=== PATIENT | female | born 1940 | race Caucasian/White ===

== ENCOUNTER 2022-05-28 09:20 | Emergency (ER) | payer MEDICARE, BC ==
[~2022-05-28] VITALS: Ht 165.1 cm; Wt 93.0 kg
[2022-05-28 10:39] VITALS: BP 154/119
[2022-05-28] MEDS ORDERED: SODIUM CHLORIDE 0.9% 1,000 ML IV ONE (11:15)
[2022-05-28 11:45] LABS: Urine Bacteria NONE SEEN /hpf (None Seen); Urine Blood Negative /uL (Negative); Urine Hyaline Cast FEW /lpf (0 - 2); Urine Mucus FEW (None Seen); Urine WBC 2 /hpf (0 - 5)
[2022-05-28 12:14] LABS: Basophils # (auto) 0 10 ^3/uL (0-0.2); Basophils % (auto) 0.4 % (0.0-2.0); Eosinophils # (auto) 0.1 10 ^3/uL (0-0.8); Eosinophils % (auto) 1.4 % (0.0-7.0); Hematocrit 39.2 % (36.0-46.0); Hemoglobin 12.4 g/dL (12.2-16.2); Lymphocytes # (auto) 1.3 10 ^3/uL (0.4-5.4); Lymphocytes % (auto) 14.8 % (10.0-50.0); Mean Corpuscular Hemoglobin 31.3 pg (28.0-32.0); Mean Corpuscular Hgb Conc. 31.5 g/dL (32.0-36.0); Mean Corpuscular Volume 99.4 fL (80.0-100.0); Monocytes # (auto) 0.8 10 ^3/uL (0-1.3); Monocytes % (auto) 8.9 % (0.0-12.0); Neutrophils # (auto) 6.4 10 ^3/uL (1.6-8.6); Neutrophils % (auto) 74.5 % (37.0-80.0); Nucleated Red Blood Cells % 0.2 %; Red Blood Cells 3.94 10^6/uL (4.0-5.20); Red Cell Distribution Width 15.2 % (11.8-14.3); White Blood Cell 8.6 10^3/uL (4.4-10.8)
[2022-05-28 12:16] LABS: Albumin 3.6 g/dL (3.4-5.0); BUN/Creatinine Ratio 13.3; Calcium 8.9 mg/dL (8.5-10.1); Potassium 3.7 mmol/L (3.5-5.1)
[2022-05-28 12:18] LABS: INR 0.96 (0.9-1.15); Partial Thromboplastin Time 27.1 sec (24.6-33.4)
[2022-05-28 12:26] LABS: Bilirubin, Total 0.3 mg/dL (0.2-1.0); Total Protein 7.4 g/dL (6.4-8.2)
[2022-05-28] MEDS ORDERED: NITR-87 PO (15:32)
[2022-05-28] MEDS ORDERED: IBU600T PO (15:33)
[2022-05-28] MEDS ORDERED: cloNIDine HCL 0.1 MG TAB PO ONE (15:45)
== END 2022-05-28 17:28 | disposition left against medical advice (07) ==
LOC: ER 09:20
DX: M25.551 Pain in right hip (principal); N39.0 Urinary tract infection, site not specified; I10 Essential (primary) hypertension; Z79.899 Other long term (current) drug therapy
CPT/HCPCS: 36415; 71045; 72192; 73502; 80053; 81001; 84484; 85025; 85610; 85730

== ENCOUNTER 2022-07-15 14:56 | Inpatient (IN) | payer MEDICARE, BC ==
[~2022-07-15] VITALS: Ht 165.1 cm; Wt 100.6 kg
[~2022-07-15 14:56] MED LIST: IBU600T PO; NITR-87 PO
[2022-07-15] MEDS ORDERED: SODIUM CHLORIDE 0.9% 1,000 ML IV ONE (16:30)
[2022-07-15] MEDS ORDERED: ONDANSETRON HCL 4 MG/2 ML VIAL IV ONE (16:30)
[2022-07-15] MEDS ORDERED: MORPHINE SULFATE 4 MG/ML SYR/VIAL IV ONE (16:30)
[2022-07-15 17:27] LABS: Basophils # (auto) 0 10 ^3/uL (0-0.2); Basophils % (auto) 0.7 % (0.0-2.0); Eosinophils # (auto) 0 10 ^3/uL (0-0.8); Eosinophils % (auto) 0.5 % (0.0-7.0); Hematocrit 35.1 % (36.0-46.0); Hemoglobin 11.6 g/dL (12.2-16.2); Lymphocytes # (auto) 0.5 10 ^3/uL (0.4-5.4); Lymphocytes % (auto) 7.5 % (10.0-50.0); Mean Corpuscular Hemoglobin 31.6 pg (28.0-32.0); Mean Corpuscular Hgb Conc. 33.1 g/dL (32.0-36.0); Mean Corpuscular Volume 95.4 fL (80.0-100.0); Monocytes # (auto) 0.5 10 ^3/uL (0-1.3); Monocytes % (auto) 7.4 % (0.0-12.0); Neutrophils # (auto) 5.3 10 ^3/uL (1.6-8.6); Neutrophils % (auto) 83.9 % (37.0-80.0); Nucleated Red Blood Cells % 0.1 %; Red Blood Cells 3.68 10^6/uL (4.0-5.20); White Blood Cell 6.3 10^3/uL (4.4-10.8)
[2022-07-15 17:30] LABS: INR 0.95 (0.9-1.15); Partial Thromboplastin Time 27.9 sec (24.6-33.4)
[2022-07-15 17:32] LABS: Albumin 3.4 g/dL (3.4-5.0); Calcium 9.1 mg/dL (8.5-10.1); Magnesium 2.5 mg/dL (1.6-2.6); Potassium 3.5 mmol/L (3.5-5.1)
[2022-07-15 17:36] LABS: BUN/Creatinine Ratio 19.6; Bilirubin, Total 0.2 mg/dL (0.2-1.0); Total Protein 7.5 g/dL (6.4-8.2)
[2022-07-15] MEDS ORDERED: DOCUSATE SOD 100 MG CAP PO PRN (18:45)
[2022-07-15] MEDS ORDERED: ONDANSETRON HCL 4 MG/2 ML VIAL IV PRN (18:45)
[2022-07-15] MEDS ORDERED: ENOXAPARIN SOD 40 MG/0.4 ML SYRINGE SC SCH (18:53)
[2022-07-15] MEDS: SODIUM CHLORIDE 0.9% 1,000 ML IV SCH (21:51)
[2022-07-15] MEDS: PANTOPRAZOLE 40 MG/10 ML VIAL INJ IV SCH (21:51)
[2022-07-15] MEDS: MORPHINE SULFATE INJ 2 MG/ml SYRG IV PRN (21:53)
[2022-07-15] MEDS: HEPARIN SODIUM (PORCINE) 5000 UNITS/ML 1ML VIAL SC SCH (22:12)
[2022-07-15 23:19] VITALS: BP 146/71
[2022-07-16] MEDS: MORPHINE SULFATE INJ 2 MG/ml SYRG IV PRN ×3 (02:09→10:41)
[2022-07-16 05:00] VITALS: BP 117/58
[2022-07-16 05:50] LABS: Basophils # (auto) 0 10 ^3/uL (0-0.2); Basophils % (auto) 0.5 % (0.0-2.0); Eosinophils # (auto) 0.1 10 ^3/uL (0-0.8); Eosinophils % (auto) 1.3 % (0.0-7.0); Hematocrit 31.7 % (36.0-46.0); Hemoglobin 10.6 g/dL (12.2-16.2); Lymphocytes # (auto) 0.9 10 ^3/uL (0.4-5.4); Lymphocytes % (auto) 16.6 % (10.0-50.0); Mean Corpuscular Hemoglobin 31.7 pg (28.0-32.0); Mean Corpuscular Hgb Conc. 33.5 g/dL (32.0-36.0); Mean Corpuscular Volume 94.5 fL (80.0-100.0); Monocytes # (auto) 0.5 10 ^3/uL (0-1.3); Monocytes % (auto) 10.3 % (0.0-12.0); Neutrophils # (auto) 3.8 10 ^3/uL (1.6-8.6); Neutrophils % (auto) 71.3 % (37.0-80.0); Red Blood Cells 3.36 10^6/uL (4.0-5.20); Red Cell Distribution Width 15.9 % (11.8-14.3); White Blood Cell 5.3 10^3/uL (4.4-10.8)
[2022-07-16 05:58] LABS: Albumin 2.8 g/dL (3.4-5.0); Calcium 8.7 mg/dL (8.5-10.1); Potassium 3.2 mmol/L (3.5-5.1)
[2022-07-16 06:00] LABS: BUN/Creatinine Ratio 20.8
[2022-07-16 06:02] LABS: Bilirubin, Total 0.2 mg/dL (0.2-1.0); Total Protein 6.6 g/dL (6.4-8.2)
[2022-07-16] MEDS ORDERED: POTASSIUM CHL 20 Meq TABLET PO ONE (08:45)
[2022-07-16] MEDS ORDERED: POTASSIUM CHL 20MEQ/100ML 100 ML IV ONE (08:45)
[2022-07-16 09:00] VITALS: BP 129/61
[2022-07-16] MEDS: HEPARIN SODIUM (PORCINE) 5000 UNITS/ML 1ML VIAL SC SCH ×2 (09:45→22:00)
[2022-07-16] MEDS: SODIUM CHLORIDE 0.9% 1,000 ML IV SCH ×2 (10:40→23:53)
[2022-07-16] MEDS: PANTOPRAZOLE 40 MG/10 ML VIAL INJ IV SCH (10:40)
[2022-07-16] MEDS ORDERED: ROCURONIUM 10MG/ML 10ML VIAL IV ONE (12:36)
[2022-07-16] MEDS ORDERED: ONDANSETRON HCL 4 MG/2 ML VIAL IV ONE (12:36)
[2022-07-16] MEDS ORDERED: SUCCINYLCHOLINE CHLORIDE 20 MG/ML 10ML VIAL IV ONE (12:36)
[2022-07-16 13:00] VITALS: BP 147/64
[2022-07-16] MEDS ORDERED: ceFAZolin 1GM/50ML 100 ML IV ONE ×2 (16:16→19:25)
[2022-07-16] MEDS ORDERED: BUPIVACAINE W/ EPINEPH 0.25% INJ 50ML MDV ONE (16:32)
[2022-07-16] MEDS ORDERED: TRANEXAMIC ACID 20 ML ONE (16:32)
[2022-07-16] MEDS ORDERED: LIDOCAINE HCL (LOCAL ANESTH.) 0.5 % 50ML MDV IJ ONE (16:59)
[2022-07-16] MEDS ORDERED: TETRACAINE 1% INJ 2 ML VIAL IJ ONE (17:02)
[2022-07-16] MEDS ORDERED: fentaNYL CITRATE 100 MCG/2 ML VL ONE (17:12)
[2022-07-16] MEDS ORDERED: MIDAZOLAM HCL 2MG/2ML 2ml VIAL (1mg/ml) ONE (17:13)
[2022-07-16] MEDS ORDERED: VANCOMYCIN HCL 1000 MG VL ONE (19:26)
[2022-07-16] MEDS ORDERED: NALOXONE HCL 0.4 MG/ML VIAL IV PRN (19:30)
[2022-07-16] MEDS ORDERED: NALBUPHINE HCL 10 MG/1ml INJECTION SUBCUT ONE (19:30)
[2022-07-16] MEDS ORDERED: DexAMETHasone SOD PHOS 10MG/1ML VIAL INJ IV PRN (19:30)
[2022-07-16] MEDS ORDERED: HYDROmorphone HCL 2 MG/ML VL/or syr IV PRN ×3 (19:30)
[2022-07-16] MEDS ORDERED: ONDANSETRON HCL 4 MG/2 ML VIAL IV PRN (19:30)
[2022-07-16] MEDS ORDERED: PROPOFOL 10 MG/ML 20 ML IV ONE (21:30)
[2022-07-16 22:20] VITALS: BP 141/68
[2022-07-16 23:40] VITALS: BP 148/75
[2022-07-17] VITALS (18 sets, daily range): BP systolic 95–136; BP diastolic 52–96
[2022-07-17] MEDS ORDERED: ceFAZolin 1GM/50ML 100 ML IV ONE (01:06)
[2022-07-17] MEDS: ceFAZolin 2 GM in D5W 5% 100 ML IV SCH ×2 (01:18→10:10)
[2022-07-17] MEDS: PANTOPRAZOLE 40 MG/10 ML VIAL INJ IV SCH (08:35)
[2022-07-17] MEDS: MORPHINE SULFATE INJ 2 MG/ml SYRG IV PRN ×4 (08:37→19:44)
[2022-07-17] MEDS ORDERED: HEPARIN SODIUM (PORCINE) 5000 UNITS/ML 1ML VIAL ONE (08:45)
[2022-07-17] MEDS: HEPARIN SODIUM (PORCINE) 5000 UNITS/ML 1ML VIAL SC SCH ×2 (10:13→20:32)
[2022-07-17] MEDS ORDERED: DOCUSATE SOD 100 MG CAP PO ONE (10:30)
[2022-07-17] MEDS ORDERED: ACETAMINOPHEN 325 MG TAB PO PRN (10:30)
[2022-07-17 11:14] LABS: Basophils # (auto) 0 10 ^3/uL (0-0.2); Basophils % (auto) 0.2 % (0.0-2.0); Eosinophils # (auto) 0 10 ^3/uL (0-0.8); Eosinophils % (auto) 0.3 % (0.0-7.0); Hematocrit 29.6 % (36.0-46.0); Hemoglobin 9.8 g/dL (12.2-16.2); Lymphocytes # (auto) 0.5 10 ^3/uL (0.4-5.4); Lymphocytes % (auto) 7.2 % (10.0-50.0); Mean Corpuscular Hemoglobin 31.1 pg (28.0-32.0); Mean Corpuscular Hgb Conc. 33.1 g/dL (32.0-36.0); Mean Corpuscular Volume 93.9 fL (80.0-100.0); Monocytes # (auto) 0.6 10 ^3/uL (0-1.3); Neutrophils # (auto) 5.8 10 ^3/uL (1.6-8.6); Neutrophils % (auto) 83.3 % (37.0-80.0); Nucleated Red Blood Cells % 0.1 %; Red Blood Cells 3.15 10^6/uL (4.0-5.20); Red Cell Distribution Width 15.5 % (11.8-14.3)
[2022-07-17 11:32] LABS: BUN/Creatinine Ratio 23.1; Calcium 8.4 mg/dL (8.5-10.1); Potassium 3.5 mmol/L (3.5-5.1)
[2022-07-17] MEDS: SODIUM CHLORIDE 0.9% 1,000 ML IV SCH ×3 (13:39→14:47)
[2022-07-17] MEDS: HYDROcodone-ACET 5/325MG TAB PO PRN ×2 (15:33→23:09)
[2022-07-17] MEDS: DOCUSATE SOD 100 MG CAP PO SCH (20:25)
[2022-07-17] MEDS ORDERED: ceFAZolin 1GM/50ML 50 ML IV ONE ×2 (22:00→22:30)
[2022-07-18] MEDS: MORPHINE SULFATE INJ 2 MG/ml SYRG IV PRN ×2 (04:56→13:18)
[2022-07-18 05:00] VITALS: BP 127/64
[2022-07-18 06:40] LABS: Basophils # (auto) 0 10 ^3/uL (0-0.2); Basophils % (auto) 0.2 % (0.0-2.0); Eosinophils # (auto) 0 10 ^3/uL (0-0.8); Eosinophils % (auto) 0.5 % (0.0-7.0); Hematocrit 28.7 % (36.0-46.0); Hemoglobin 9.5 g/dL (12.2-16.2); Lymphocytes # (auto) 0.6 10 ^3/uL (0.4-5.4); Lymphocytes % (auto) 6.5 % (10.0-50.0); Mean Corpuscular Hgb Conc. 33.1 g/dL (32.0-36.0); Mean Corpuscular Volume 93.7 fL (80.0-100.0); Monocytes # (auto) 1.1 10 ^3/uL (0-1.3); Monocytes % (auto) 13.5 % (0.0-12.0); Neutrophils # (auto) 6.7 10 ^3/uL (1.6-8.6); Neutrophils % (auto) 79.3 % (37.0-80.0); Red Blood Cells 3.06 10^6/uL (4.0-5.20); Red Cell Distribution Width 15.5 % (11.8-14.3); White Blood Cell 8.5 10^3/uL (4.4-10.8)
[2022-07-18 06:42] LABS: BUN/Creatinine Ratio 18.4; Calcium 8.4 mg/dL (8.5-10.1); Potassium 3.2 mmol/L (3.5-5.1)
[2022-07-18] MEDS: HYDROcodone-ACET 5/325MG TAB PO PRN ×2 (08:12→17:54)
[2022-07-18] MEDS: DOCUSATE SOD 100 MG CAP PO SCH ×2 (08:13→21:41)
[2022-07-18] MEDS: HEPARIN SODIUM (PORCINE) 5000 UNITS/ML 1ML VIAL SC SCH (08:20)
[2022-07-18 09:00] VITALS: BP 145/78
[2022-07-18] MEDS ORDERED: POTASSIUM CHL 20 Meq TABLET PO ONE (09:30)
[2022-07-18] MEDS: PANTOPRAZOLE 40 MG/10 ML VIAL INJ IV SCH (10:14)
[2022-07-18] MEDS ORDERED: ENOXAPARIN SOD 40 MG/0.4 ML SYRINGE SC ONE (10:45)
[2022-07-18] MEDS: MIDODRINE HCL 10 MG TAB PO SCH ×2 (12:22→17:54)
[2022-07-18 13:00] VITALS: BP 100/62
[2022-07-18 17:00] VITALS: BP 153/71
[2022-07-18] MEDS: SODIUM CHLORIDE 0.9% 1,000 ML IV SCH (21:04)
[2022-07-18 22:00] VITALS: BP 108/63
[2022-07-19] MEDS: HYDROcodone-ACET 5/325MG TAB PO PRN ×3 (01:03→14:29)
[2022-07-19 05:00] VITALS: BP 113/50
[2022-07-19] MEDS: MIDODRINE HCL 10 MG TAB PO SCH ×3 (05:41→18:14)
[2022-07-19 06:25] LABS: Potassium 3.3 mmol/L (3.5-5.1)
[2022-07-19 06:32] LABS: Calcium 8.3 mg/dL (8.5-10.1)
[2022-07-19] MEDS: SODIUM CHLORIDE 0.9% 1,000 ML IV SCH (08:33)
[2022-07-19] MEDS ORDERED: POTASSIUM CHL 20 Meq TABLET PO ONE (08:45)
[2022-07-19 09:00] VITALS: BP 107/61
[2022-07-19] MEDS: ENOXAPARIN SOD 40 MG/0.4 ML SYRINGE SC SCH (10:00)
[2022-07-19] MEDS: PANTOPRAZOLE 40 MG/10 ML VIAL INJ IV SCH (11:10)
[2022-07-19] MEDS: DOCUSATE SOD 100 MG CAP PO SCH ×2 (11:14→22:00)
[2022-07-19 13:00] VITALS: BP 101/60
[2022-07-19 17:00] VITALS: BP 104/85
[2022-07-19 22:00] VITALS: BP 92/59
[2022-07-20 05:00] VITALS: BP 109/55
[2022-07-20 05:47] LABS: Calcium 8.2 mg/dL (8.5-10.1); Potassium 3.7 mmol/L (3.5-5.1)
[2022-07-20] MEDS: MIDODRINE HCL 10 MG TAB PO SCH ×3 (05:48→17:18)
[2022-07-20 05:49] LABS: BUN/Creatinine Ratio 24.3
[2022-07-20] MEDS: SODIUM CHLORIDE 0.9% 1,000 ML IV SCH ×2 (05:50→13:09)
[2022-07-20 08:54] VITALS: BP 134/71
[2022-07-20] MEDS: PANTOPRAZOLE 40 MG/10 ML VIAL INJ IV SCH (10:07)
[2022-07-20] MEDS: DOCUSATE SOD 100 MG CAP PO SCH ×2 (10:08→23:31)
[2022-07-20] MEDS: ENOXAPARIN SOD 40 MG/0.4 ML SYRINGE SC SCH (10:08)
[2022-07-20] MEDS: HYDROcodone-ACET 5/325MG TAB PO PRN ×3 (10:25→23:32)
[2022-07-20 12:55] VITALS: BP 100/56
[2022-07-20 16:58] VITALS: BP 117/54
[2022-07-20 22:00] VITALS: BP 109/45
[2022-07-21] MEDS: SODIUM CHLORIDE 0.9% 1,000 ML IV SCH (04:54)
[2022-07-21 05:00] VITALS: BP 101/47
[2022-07-21] MEDS: MIDODRINE HCL 10 MG TAB PO SCH ×2 (05:57→13:17)
[2022-07-21] MEDS: HYDROcodone-ACET 5/325MG TAB PO PRN (05:57)
[2022-07-21 08:36] VITALS: BP 121/54
[2022-07-21] MEDS: ENOXAPARIN SOD 40 MG/0.4 ML SYRINGE SC SCH (10:35)
[2022-07-21] MEDS: DOCUSATE SOD 100 MG CAP PO SCH (10:35)
[2022-07-21] MEDS: PANTOPRAZOLE 40 MG/10 ML VIAL INJ IV SCH (10:35)
[2022-07-21] MEDS ORDERED: HYDR-4902 PO (10:55)
[2022-07-21] MEDS ORDERED: ENO40SY SC (10:55)
[2022-07-21 14:47] VITALS: BP 100/58
== END 2022-07-21 16:05 | disposition home health service (06) | DRG 522 ==
LOC: EDBD 14:56 → ER 14:58 → TELE 18:42 → TELE-CENTR 23:00 → CENTRAL 07-19 14:12
PROVIDERS: ADMIT Nurse Practitioner Family; ATTEND Internal Medicine Geriatric Medicine
PROC: 0SRR0J9 Replacement of Right Hip Joint, Femoral Surface with Synthetic Substitute, Cemented, Open Approach (ICD-10-PCS; principal; 2022-07-16 17:05)
DX: S72.011A Unspecified intracapsular fracture of right femur, initial encounter for closed fracture (principal); E78.5 Hyperlipidemia, unspecified; E66.01 Morbid (severe) obesity due to excess calories; K21.9 Gastro-esophageal reflux disease without esophagitis; E87.6 Hypokalemia; Y93.01 Activity, walking, marching and hiking; F41.9 Anxiety disorder, unspecified; W18.39XA Other fall on same level, initial encounter; Z20.822 Contact with and (suspected) exposure to COVID-19; I35.0 Nonrheumatic aortic (valve) stenosis; I95.1 Orthostatic hypotension; Z68.37 Body mass index [BMI] 37.0-37.9, adult; Y92.89 Other specified places as the place of occurrence of the external cause; Y99.8 Other external cause status
CPT/HCPCS: 36415; 71045; 72170; 72192; 73501; 73700; 80048; 80053; 83735; 85025; 85610; 85730; 86850; 86900; 86901; 87426; 93005; 93306; 96361; 96374; 96375; 97110; 97116; 97163; 97530; C9113; G0378; J0330; J0690; J2250; J2405; J2704; J3480; J7060

== ENCOUNTER → 2022-08-09 | Outpatient (CLI) | payer MEDICARE, BC ==
[~2022-08-09] MED LIST changes: +ENO40SY SC; +HYDR-4902 PO
[2022-08-09 16:18] LABS: Basophils # (auto) 0.1 10 ^3/uL (0-0.2); Eosinophils # (auto) 0.2 10 ^3/uL (0-0.8); Eosinophils % (auto) 2.9 % (0.0-7.0); Mean Corpuscular Hemoglobin 31.6 pg (28.0-32.0)
[2022-08-09 16:23] LABS: Basophils % (auto) 1.4 % (0.0-2.0); Hematocrit 30.1 % (36.0-46.0); Hemoglobin 10.1 g/dL (12.2-16.2); Lymphocytes # (auto) 1.3 10 ^3/uL (0.4-5.4); Lymphocytes % (auto) 20.3 % (10.0-50.0); Mean Corpuscular Hgb Conc. 33.4 g/dL (32.0-36.0); Mean Corpuscular Volume 94.8 fL (80.0-100.0); Monocytes # (auto) 0.6 10 ^3/uL (0-1.3); Monocytes % (auto) 9.3 % (0.0-12.0); Neutrophils # (auto) 4.4 10 ^3/uL (1.6-8.6); Neutrophils % (auto) 66.1 % (37.0-80.0); Nucleated Red Blood Cells % 0.1 %; Red Blood Cells 3.18 10^6/uL (4.0-5.20); Red Cell Distribution Width 18.3 % (11.8-14.3); White Blood Cell 6.6 10^3/uL (4.4-10.8)
== END | disposition home or self-care (01) ==
LOC: LAB 15:33
PROVIDERS: ATTEND Internal Medicine
DX: D64.89 Other specified anemias (principal)
CPT/HCPCS: 36415; 85025

== ENCOUNTER 2022-08-21 14:41 | Emergency (ER) | payer MEDICARE, BC ==
[~2022-08-21] VITALS: Ht 165.1 cm; Wt 94.0 kg
[2022-08-21 16:10] LABS: Basophils # (auto) 0.1 10 ^3/uL (0-0.2); Basophils % (auto) 1.3 % (0.0-2.0); Eosinophils # (auto) 0.1 10 ^3/uL (0-0.8); Eosinophils % (auto) 1.6 % (0.0-7.0); Hematocrit 35.2 % (36.0-46.0); Hemoglobin 11.4 g/dL (12.2-16.2); Lymphocytes % (auto) 20.8 % (10.0-50.0); Mean Corpuscular Hemoglobin 31.5 pg (28.0-32.0); Mean Corpuscular Hgb Conc. 32.5 g/dL (32.0-36.0); Mean Corpuscular Volume 96.8 fL (80.0-100.0); Monocytes # (auto) 0.4 10 ^3/uL (0-1.3); Monocytes % (auto) 8.6 % (0.0-12.0); Neutrophils # (auto) 3.2 10 ^3/uL (1.6-8.6); Neutrophils % (auto) 67.7 % (37.0-80.0); Nucleated Red Blood Cells % 0.2 %; Red Blood Cells 3.64 10^6/uL (4.0-5.20); Red Cell Distribution Width 17.2 % (11.8-14.3); White Blood Cell 4.7 10^3/uL (4.4-10.8)
[2022-08-21 16:12] LABS: BUN/Creatinine Ratio 14.1; Potassium 3.9 mmol/L (3.5-5.1)
[2022-08-21 16:13] LABS: Albumin 3.4 g/dL (3.4-5.0); Calcium 9.1 mg/dL (8.5-10.1); Magnesium 2.6 mg/dL (1.6-2.6)
[2022-08-21 16:16] LABS: Bilirubin, Total 0.2 mg/dL (0.2-1.0); Total Protein 7.3 g/dL (6.4-8.2)
[2022-08-21 17:12] LABS: Urine Bacteria NONE SEEN /hpf (None Seen); Urine Blood Negative /uL (Negative); Urine Hyaline Cast FEW /lpf (0 - 2); Urine Mucus FEW (None Seen); Urine Specific Gravity 1.016 (1.001-1.035); Urine WBC 12 /hpf (0 - 5)
[2022-08-21] MEDS ORDERED: NITR-87 PO (21:05)
[2022-08-21 22:45] VITALS: BP 120/46
== END 2022-08-21 23:12 | disposition home or self-care (01) ==
LOC: ER 14:41
DX: N39.0 Urinary tract infection, site not specified (principal); R06.00 Dyspnea, unspecified; Z20.822 Contact with and (suspected) exposure to COVID-19; Z79.899 Other long term (current) drug therapy
CPT/HCPCS: 36415; 71046; 71275; 80053; 81001; 83735; 83880; 84484; 85025; 85379; 87426; 93005; 93971